=== PATIENT | male | born 1980 | race African-American/Black ===

== ENCOUNTER 2019-02-04 21:30 | Emergency (ER) | payer OTHER ==
[2019-02-04 22:00] LABS: BILIRUBIN,URINE NEGATIVE (NEGATIVE); GLUCOSE, URINE (UA) NEGATIVE (NEGATIVE); KETONES,URINE (UA) TRACE mg/dL (NEGATIVE); LEUKOCYTE ESTERASE, URINE NEGATIVE (NEGATIVE); NITRITE,URINE NEGATIVE (NEGATIVE); OCCULT BLOOD,URINE NEGATIVE (NEGATIVE); PH,URINE 6.5 PH (5.0-7.5); PROTEIN,URINE NEGATIVE (NEGATIVE); UROBILINOGEN,URINE 1 (NORMAL) E.U./dL (NORMAL)
[2019-02-04 22:01] LABS: CLARITY,URINE CLEAR (CLEAR)
[2019-02-04] MEDS ORDERED: KETOROLAC 30 MG/ML VIAL IVP STA (22:01)
[2019-02-04] MEDS ORDERED: ONDANSETRON 4 MG/2 ML VIAL IVP STA (22:01)
--- NOTE | 2019-02-04 22:03 | ED Physician Documentation ---
PD HPI ABD PAIN - Stated complaint Stated Complaint: AB PX - Chief complaint Chief Complaint: Abd Pain - History obtained from History obtained from: Patient, Family - History of Present Illness Timing - onset: Enter time (1700), Yesterday Timing - duration: Days (1) Timing - details: Gradual onset, Still present Quality: Sharp, Pain Location: RUQ Radiation: Other (right abdomen) Improved by: Laying still Worsened by: Breathing, Position, Palpation Associated symptoms: Fever, Nausea, Diarrhea. No: Vomiting Similar symptoms before: Has not had sx before Recently seen: Not recently seen - Additional information Additional information: 38-year-old previously well vegan male has developed right upper quadrant abdominal pain yesterday evening. He states he ate a usual diet of rice and stirfry vegetables and sushi vegan. He had an uncomfortable night did go to work today when he got home from work his pain was worse his noted a low- grade fever he is doubled over in pain now at 9 PM and she is brought him here to the hospital. The patient does have prior episodes of abdominal pain after eating which usually resolve rapidly. Review of Systems Constitutional: reports: Fever, Chills Eyes: denies: Decreased vision Ears: denies: Ear pain Nose: denies: Congestion Throat: denies: Sore throat Cardiac: denies: Chest pain / pressure, Palpitations Respiratory: denies: Dyspnea, Cough GI: reports: Abdominal Pain, Nausea, Diarrhea. denies: Vomiting, Constipation : denies: Dysuria, Frequency Skin: denies: Rash Musculoskeletal: denies: Neck pain, Back pain, Extremity pain PD PAST MEDICAL HISTORY - Past Medical History Past Medical History: No Other Past Medical History: DENIES - Past Surgical History Past Surgical History: Yes Ortho: Other - Allergies Allergies/Adverse Reactions: Allergies Allergy/AdvReac Type Severity Reaction Status Date / Time No Known Drug Allergies Allergy Verified 02/04/19 21:38 - Social History Does the pt smoke?: No Smoking Status: Never smoker Does the pt drink ETOH?: No Does the pt have substance abuse?: No - Immunizations Immunizations are current?: Yes PD ED PE NORMAL - Vitals Vital signs reviewed: Yes (hypertensive ) - General General: Alert and oriented X 3, No acute distress, Well developed/nourished, Other (muscular build ) - HEENT HEENT: Atraumatic, PERRL, EOMI - Neck Neck: Supple, no meningeal sign, No bony TTP - Cardiac Cardiac: RRR, No murmur - Respiratory Respiratory: No respiratory distress, Clear bilaterally - Abdomen Abdomen: Soft, Other (RUQ tenderness with arrest of resp with palpation. Remainder of abd exam normal ) - Back Back: No CVA TTP, No spinal TTP - Derm Derm: Normal color, Warm and dry, No rash - Extremities Extremities: No deformity, No edema, No calf tenderness / cord - Neuro Neuro: Alert and oriented X 3, machine lead burner 2-12 intact, No motor deficit, No sensory deficit, Normal speech Eye Opening: Spontaneous Motor: Obeys Commands Verbal: Oriented GCS Score: 15 - Psych Psych: Normal mood, Normal affect Results - Vitals Vitals: Vital Signs - 24 hr 02/04/19 02/05/19 02/05/19 21:36 00:10 02:20 Temperature 36.6 C 36.2 C L Heart Rate 87 97 62 Respiratory 16 16 18 Rate Blood Pressure 140/87 H 117/76 107/69 O2 Saturation 100 99 100 Oxygen O2 Source Room air - Labs Labs: Laboratory Tests 02/04/19 02/04/19 02/04/19 21:44 22:15 22:53 WBC 5.3 RBC 4.52 L Hgb 13.6 L Hct 40.6 L MCV 89.7 MCH 30.2 MCHC 33.6 RDW 14.5 Plt Count 239 MPV 7.9 Neut # (Auto) 2.7 Lymph # (Auto) 1.8 [place] # (Auto) 0.4 Eos # (Auto) 0.3 Baso # (Auto) 0.1 Absolute Nucleated RBC 0.00 Nucleated RBC % 0.1 Sodium 141 Potassium 3.8 Chloride 102 Carbon Dioxide 30 Anion Gap 9.0 BUN 7 Creatinine 1.0 Estimated GFR (MDRD) 101 Glucose 86 Calcium 9.0 Total Bilirubin 1.8 H AST 27 ALT 26 Alkaline Phosphatase 101 Troponin I Total Protein 7.6 Albumin 4.0 Globulin 3.6 Albumin/Globulin Ratio 1.1 Lipase 39 Urine Color YELLOW Urine Clarity CLEAR Urine pH 6.5 Ur Specific [place] <=1.005 Urine Protein NEGATIVE Urine Glucose (UA) NEGATIVE Urine Ketones TRACE Urine Occult Blood NEGATIVE Urine Nitrite NEGATIVE Urine Bilirubin NEGATIVE Urine Urobilinogen 1 (NORMAL) Ur Leukocyte Esterase NEGATIVE Ur Microscopic Review NOT INDICATED Urine Culture Comments NOT INDICATED 02/04/19 22:53 WBC RBC Hgb Hct MCV MCH MCHC RDW Plt Count MPV Neut # (Auto) Lymph # (Auto) [place] # (Auto) Eos # (Auto) Baso # (Auto) Absolute Nucleated RBC Nucleated RBC % Sodium Potassium Chloride Carbon Dioxide Anion Gap BUN Creatinine Estimated GFR (MDRD) Glucose Calcium Total Bilirubin AST ALT Alkaline Phosphatase Troponin I < 0.04 Total Protein Albumin Globulin Albumin/Globulin Ratio Lipase Urine Color Urine Clarity Urine pH Ur Specific [place] Urine Protein Urine Glucose (UA) Urine Ketones Urine Occult Blood Urine Nitrite Urine Bilirubin Urine Urobilinogen Ur Leukocyte Esterase Ur Microscopic Review Urine Culture Comments - Rads (name of study) CT abd/pel with Radiology: Prelim report reviewed (Impression: 1. No acute inflammatory or obstructive process seen in the abdomen pelvis.), EMP read indepedently, See rad report gb ultrasound Radiology: Prelim report reviewed (Impression: 1. No cholelithiasis or gallbladder wall thickening seen. There is mild tenderness over the gallbladder of uncertain significance. No biliary dilation seen. Right kidney shows minimal pelviectasis without konstantin hydronephrosis.), EMP read indepedently, See rad report Procedures - Bedside sono Bedside sono by EMP: With use of bedside ultrasound the gallbladder is imaged there does appear to be some sludge in the in the dependent wall of the gallbladder and the gallbladder wall is thickened to 0.62 cm with some trace pericholecystic fluid. The gallbladder is sonographically tender and reproduces the symptoms the patient is having. PD MEDICAL DECISION MAKING - ED course Complexity details: reviewed results, re-evaluated patient, considered differential, d/w patient, d/w family ED course: 38-year-old male with right upper quadrant abdominal pain has negative diagnostics both CT and ultrasound he has a normal white blood cell count he does have pain worse with movement he does have specific tenderness over the right upper quadrant and I suspect he may have abdominal wall muscle strain. I discussed these findings with the patient and his and they will follow-up appropriately with her primary care doctor. Departure - Departure Disposition: 01 Home, Self Care Clinical Impression: Strain of abdominal wall Condition: Stable Instructions: ED Strain Abdominal Muscle Follow-Up: ABHI Redd [Provider Group] Discharge Date/Time: 02/05/19 02:25
[2019-02-04 22:23] LABS: BASOPHILS # (AUTO) 0.1 10^3/uL (0.0-0.1); BASOPHILS % (AUTO) 1.2 %; EOSINOPHILS # (AUTO) 0.3 10^3/uL (0.0-0.7); EOSINOPHILS % (AUTO) 5.5 %; HGB - HEMOGLOBIN 13.6 g/dL (14.0-18.0); LYMPHOCYTES # (AUTO) 1.8 10^3/uL (1.5-3.5); LYMPHOCYTES % (AUTO) 34.4 %; MEAN CORPUSCULAR HEMOGLOBIN 30.2 pg (27.0-31.0); MEAN CORPUSCULAR HGB CONC 33.6 g/dL (32.0-36.0); MEAN CORPUSCULAR VOLUME 89.7 fL (80.0-94.0); MEAN PLATELET VOLUME 7.9 fL (7.4-11.4); MONOCYTES # (AUTO) 0.4 10^3/uL (0.0-1.0); MONOCYTES % (AUTO) 8.1 %; NEUTROPHILS # (AUTO) 2.7 10^3/uL (1.5-6.6); NEUTROPHILS % (AUTO) 50.8 %; PLT - PLATELET COUNT 239 10^3/uL (130-450); RED BLOOD COUNT 4.52 10^6/uL (4.70-6.10); RED CELL DISTRIBUTION WIDTH 14.5 % (12.0-15.0); WHITE BLOOD COUNT 5.3 x10^3/uL (4.8-10.8)
[2019-02-04 23:16] LABS: ALBUMIN/GLOBULIN RATIO 1.1 (1.0-2.2); BILIRUBIN,TOTAL 1.8 mg/dL (0.2-1.0); TOTAL PROTEIN 7.6 g/dL (6.7-8.2)
--- NOTE | 2019-02-04 23:32 | Ultrasound Report ---
Reason: RUQ pain Procedure Date: 02/04/2019 Accession Number: [id number] / [id number] Procedure: US - Abdomen Limited CPT Code: FULL RESULT: EXAM: ABDOMEN ULTRASOUND LIMITED, RUQ EXAM DATE: 02/04/2019 11:00 PM. CLINICAL HISTORY: RUQ pain. COMPARISON: None. TECHNIQUE: Real-time scanning was performed with static images obtained. FINDINGS: Liver: No focal abnormality seen. 17.3 cm. Main portal vein flow: Hepatopetal. Gallbladder: Wall thickness is normal at 1.7 mm. No gallstones are seen. There is mild tenderness over the gallbladder. Patient had received pain medication. Biliary System: CBD measures 4.6 mm. No intrahepatic or extrahepatic ductal dilatation. Other: Right kidney measures 10.1 cm. There is minimal pelviectasis without konstantin hydronephrosis. Inferior vena cava is patent where seen. IMPRESSION: 1. No cholelithiasis or gallbladder wall thickening seen. There is mild tenderness over the gallbladder of uncertain significance. 2. No biliary dilatation seen. 3. Right kidney shows minimal pelviectasis without konstantin hydronephrosis. RADIA
[2019-02-05] MEDS ORDERED: ONDANSETRON 4 MG/2 ML VIAL IVP STA (00:15)
[2019-02-05] MEDS ORDERED: HYDROmorphone 1 MG/ML CARPUJECT IVP STA (00:15)
[2019-02-05] MEDS ORDERED: IOVERSOL 320 100 ML VIAL IVP ONE ×2 (00:47→01:09)
--- NOTE | 2019-02-05 01:36 | CT Report ---
Reason: RUQ pain Procedure Date: 02/05/2019 Accession Number: [id number] / [id number] Procedure: CT - Abdomen/Pelvis W CPT Code: FULL RESULT: EXAM: CT ABDOMEN AND PELVIS EXAM DATE: 02/05/2019 01:11 AM. CLINICAL HISTORY: Right sided pain. COMPARISONS: Ultrasound, 02/04/2019. TECHNIQUE: Routine helical CT imaging was performed through the abdomen and pelvis. IV contrast: [id number] 100ML. Enteric contrast: No. Reconstructions: Coronal and sagittal. In accordance with CT protocol optimization, one or more of the following dose reduction techniques were utilized for this exam: automated exposure control, adjustment of mA and/or KV based on patient size, or use of iterative reconstructive technique. FINDINGS: Lung Bases: Mild bibasilar atelectasis. Liver: No focal abnormality seen. Gallbladder/Bile Ducts: Unremarkable. Spleen: Normal. Pancreas: Normal. Adrenal Glands: Normal. Kidneys: Normal. No masses or hydronephrosis. Peritoneal Cavity/Bowel: No bowel obstruction seen. No diverticulitis. No free air or free fluid. No lymphadenopathy. Appendix appears normal. Pelvic Organs: Normal. The bladder and visualized pelvic organs are within normal limits. Vasculature: No aneurysms or other significant abnormality. Bones: No significant abnormality. Other: None. IMPRESSION: 1. No acute inflammatory or obstructive process seen in the abdomen or pelvis. RADIA
[2019-02-05 02:21] VITALS: BP 107/69
== END 2019-02-05 02:25 | disposition home or self-care (01) ==
LOC: ED 21:30
DX: S39.011A Strain of muscle, fascia and tendon of abdomen, initial encounter (principal); X58.XXXA Exposure to other specified factors, initial encounter
CPT/HCPCS: 36415; 74177; 76705; 80053; 81003; 83690; 84484; 85025; 96374; 96376; 99284; J1170; Q9967; 81001; 87086

== ENCOUNTER 2019-08-05 10:47 | Emergency (ER) | payer OTHER ==
[2019-08-05 11:39] LABS: BASOPHILS # (AUTO) 0.1 10^3/uL (0.0-0.1); BASOPHILS % (AUTO) 1.5 %; EOSINOPHILS # (AUTO) 0.3 10^3/uL (0.0-0.7); EOSINOPHILS % (AUTO) 6.7 %; HGB - HEMOGLOBIN 13.5 g/dL (14.0-18.0); LYMPHOCYTES # (AUTO) 1.7 10^3/uL (1.5-3.5); LYMPHOCYTES % (AUTO) 43.1 %; MEAN CORPUSCULAR HEMOGLOBIN 29.5 pg (27.0-31.0); MEAN CORPUSCULAR VOLUME 89.3 fL (80.0-94.0); MEAN PLATELET VOLUME 9.3 fL (7.4-11.4); MONOCYTES # (AUTO) 0.2 10^3/uL (0.0-1.0); MONOCYTES % (AUTO) 5.7 %; NEUTROPHILS # (AUTO) 1.7 10^3/uL (1.5-6.6); NEUTROPHILS % (AUTO) 42.8 %; PLT - PLATELET COUNT 236 10^3/uL (130-450); RED BLOOD COUNT 4.58 10^6/uL (4.70-6.10); RED CELL DISTRIBUTION WIDTH 13.1 % (12.0-15.0)
--- NOTE | 2019-08-05 11:52 | ED Physician Documentation ---
PD HPI CHEST PAIN - Stated complaint Stated Complaint: CHEST PAIN - Chief complaint Chief Complaint: Cardiac - History obtained from History obtained from: Patient - History of Present Illness Timing - onset: How many days ago (3) Timing - onset during: Light activity Timing - duration: Days Timing - details: Gradual onset, Still present, Waxing and waning Quality: Aching, Sharp, Pain Location: Right chest, Upper back. No: Substernal, Left chest Radiation: Back. No: Jaw, Neck Improved by: Other (tried Ibuprofen few times without improvement) Worsened by: Movement. No: Exertion (he says he has continued to work out, and did so this morning without worse pain while exercising.), Inspiration, Eating, Palpation Associated symptoms: No: Shortness of air, Nausea, Feeling faint / dizzy, Palpitations, Cough Similar symptoms before: Has not had sx before Recently seen: Emergency Dept (few hours ago at [facility] ER. Normal labs, CXR, and ECG.) Review of Systems Constitutional: denies: Fever, Chills, Myalgias Nose: denies: Rhinorrhea / runny nose, Congestion Throat: denies: Sore throat Cardiac: reports: Chest pain / pressure. denies: Palpitations, Pedal edema, Calf pain Respiratory: denies: Cough, Wheezing GI: denies: Abdominal Pain, Nausea, Vomiting Skin: denies: Rash Neurologic: denies: Generalized weakness, Near syncope PD PAST MEDICAL HISTORY - Past Medical History Cardiovascular: None Respiratory: None Neuro: None Endocrine/Autoimmune: None - Past Surgical History Past Surgical History: Yes Ortho: Other - Present Medications Home Medications: Ambulatory Orders Medication Instructions Recorded Confirmed Hydrocodone/Acetaminophen 5 - 7.5 mg PO Q6H PRN #120 ml 08/05/19 [Hydrocodon-Acetamin 7.5-325/15] prednisoLONE [Prednisolone] 45 mg PO DAILY #90 ml 08/05/19 - Allergies Allergies/Adverse Reactions: Allergies Allergy/AdvReac Type Severity Reaction Status Date / Time No Known Drug Allergies Allergy Verified 02/04/19 21:38 - Social History Does the pt smoke?: No Smoking Status: Never smoker Does the pt drink ETOH?: No Does the pt have substance abuse?: No - Family History Family history: reports: CAD. denies: Venous thromboembolism, Aortic aneursym, Aortic dissection - Immunizations Immunizations are current?: Yes PD ED PE NORMAL - Vitals Vital signs reviewed: Yes - General General: Alert and oriented X 3, No acute distress, Well developed/nourished - HEENT HEENT: Moist mucous membranes, Pharynx benign - Neck Neck: Supple, no meningeal sign, No adenopathy - Cardiac Cardiac: RRR, No murmur - Respiratory Respiratory: Clear bilaterally, Other (no chestwall tenderness) - Abdomen Abdomen: Soft, Non tender, Non distended - Back Back: No CVA TTP, No spinal TTP - Derm Derm: Normal color, Warm and dry, No rash - Extremities Extremities: Normal ROM s pain, No edema, No calf tenderness / cord - Neuro Neuro: Alert and oriented X 3, No motor deficit, Normal speech Results - Vitals Vitals: Vital Signs - 24 hr 08/05/19 08/05/19 08/05/19 11:00 13:04 13:30 Temperature 37 C 36.2 C L Heart Rate 55 L 58 L 76 Respiratory 18 18 22 Rate Blood Pressure 145/104 H 154/97 H 133/90 H O2 Saturation 100 100 98 Oxygen O2 Source Room air - EKG (time done) 10:57 Rate: Rate (enter#) (55) Rhythm: Sinus bradycardia [place]: Normal Intervals: Normal [place] QRS: Normal Ischemia: Normal ST segments, T wave inversion (III, R (though concordant with QRS in those leads, which would perhaps consider switched lead placement). ). No: ST elevation c/w ischemia, ST depression - Labs Labs: Laboratory Tests 08/05/19 08/05/19 08/05/19 11:23 11:23 11:23 WBC 4.0 L RBC 4.58 L Hgb 13.5 L Hct 40.9 L MCV 89.3 MCH 29.5 MCHC 33.0 RDW 13.1 Plt Count 236 MPV 9.3 Neut # (Auto) 1.7 Lymph # (Auto) 1.7 [place] # (Auto) 0.2 Eos # (Auto) 0.3 Baso # (Auto) 0.1 Absolute Nucleated RBC 0.00 Nucleated RBC % 0.0 Sodium 143 Potassium 3.6 Chloride 106 Carbon Dioxide 28 Anion Gap 9.0 BUN 8 Creatinine 1.1 Estimated GFR (MDRD) 90 Glucose 104 H Calcium 9.2 Total Bilirubin 1.6 H AST 27 ALT 25 Alkaline Phosphatase 82 Troponin I High Sens 12.7 Total Protein 7.4 Albumin 4.4 Globulin 3.0 Albumin/Globulin Ratio 1.5 Lipase 42 - Rads (name of study) chest xray Radiology: Prelim report reviewed (no acute process), See rad report PD MEDICAL DECISION MAKING - ED course Complexity details: reviewed old records (ER chart from this morning [facility] ER, showed normal ECG, CXR, labs including CBC, chemistry, troponin, d- dimer. ), considered differential (not clear the cause of the pain. Presume musculoskeletal, though not tender to touch, and only moderately worse with moving and not with breathing. Serious causes excluded with labs/CXR/ECG done at [place] this morning or here now. Had increased pain after d/c from [place] and had not gotten pain meds Rx. Here for different opinion), d/w patient Departure - Departure Disposition: 01 Home, Self Care Clinical Impression: Right-sided chest pain Condition: Stable Record reviewed to determine appropriate education?: Yes Instructions: ED Chest Pain Atypical Unkn Cause Follow-Up: Eun Couch ARNP [Primary Care Provider] - Prescriptions: Hydrocodone/Acetaminophen [Hydrocodon-Acetamin 7.5-325/15] 5 - 7.5 mg PO Q6H PRN #120 ml PRN Reason: Pain prednisoLONE [Prednisolone] 45 mg PO DAILY #90 ml Comments: The cause of your pain is unclear at this point. It presumably is more musculoskeletal. The serious causes have been excluded based on the tests earlier at [facility] and again here. Follow-up with your primary care if not improved over the next 3 to 5 days. I would anticipate him tapering improvement over the next couple of days at least. Follow-up with your primary or back in the ER if have other symptoms develop such as cough or sputum production fever or rash among others. Discharge Date/Time: 08/05/19 14:00
[2019-08-05 11:55] LABS: ALBUMIN 4.4 g/dL (3.2-5.5); ALBUMIN/GLOBULIN RATIO 1.5 (1.0-2.2); BILIRUBIN,TOTAL 1.6 mg/dL (0.2-1.0); CALCIUM 9.2 mg/dL (8.5-10.3); CREATININE 1.1 mg/dL (0.6-1.2); TOTAL PROTEIN 7.4 g/dL (6.7-8.2)
[2019-08-05] MEDS ORDERED: HYDROmorphone 2 MG/ML VIAL IVP STA (12:27)
[2019-08-05] MEDS ORDERED: DEXAMETHASONE 10 MG/ML VIAL IVP STA (12:27)
[2019-08-05] MEDS ORDERED: ACETAMINOPHEN 160 MG/5 ML SUSP UDC PO STA (12:28)
[2019-08-05 13:46] VITALS: BP 133/90
--- NOTE | 2019-08-05 16:45 | XRAY Report ---
Reason: CP Procedure Date: 08/05/2019 Accession Number: [id number] / [id number] Procedure: XR - Chest 1 View X-Ray CPT Code: 83595 Final Report FULL RESULT: EXAM: CHEST RADIOGRAPHY EXAM DATE: 08/05/2019 12:04 PM. CLINICAL HISTORY: CP. COMPARISON: None. TECHNIQUE: 1 view. FINDINGS: Lungs/Pleura: Lung volumes appear symmetric. No consolidation. Negative for pulmonary edema and pneumothorax. Mediastinum: Heart size is normal. Trachea is midline. Other: None. IMPRESSION: 1. Negative chest RADIA
== END 2019-08-05 14:00 | disposition home or self-care (01) ==
LOC: ED 10:47
DX: R07.9 Chest pain, unspecified (principal); R00.1 Bradycardia, unspecified; Z82.49 Family history of ischemic heart disease and other diseases of the circulatory system
CPT/HCPCS: 36415; 71045; 80053; 83690; 84484; 85025; 93005; 96374; 96375; 99284; A9270; J1170